=== PATIENT | female | born 1955 | race Caucasian/White ===

== ENCOUNTER → 2016-11-16 | Outpatient (CLI) | payer BC ==
[~2016-11-16] MED LIST: METOCLOPRAMIDE HCL 5MG/ml INJ 2ml VIAL IV ONE; METOCLOPRAMIDE HCL 5MG/ml INJ 2ml VIAL ONE; SODIUM CHLORIDE 0.9% 1,000 ML IV ONE
[2016-11-16 15:15] VITALS: BP 120/80
[2016-11-16 16:25] VITALS: BP 125/73
== END | disposition home or self-care (01) ==
LOC: Rad HDHVI 15:25
PROVIDERS: ATTEND Internal Medicine Cardiovascular Disease
DX: R10.9 Unspecified abdominal pain (principal); I10 Essential (primary) hypertension; E55.9 Vitamin D deficiency, unspecified; D64.9 Anemia, unspecified; E78.00 Pure hypercholesterolemia, unspecified; E11.9 Type 2 diabetes mellitus without complications
CPT/HCPCS: 74000; 96361; 96374; G0463; J2765; 96360

== ENCOUNTER → 2017-07-16 | Outpatient (CLI) | payer BC | END | disposition home or self-care (01) | LOC: CHF HDHVI 07:53 | PROVIDERS: ATTEND Internal Medicine Cardiovascular Disease | DX: R79.82 Elevated C-reactive protein (CRP) (principal); R70.0 Elevated erythrocyte sedimentation rate | CPT/HCPCS: 36415; 85652; 86141 ==

== ENCOUNTER → 2017-08-17 | Outpatient (CLI) | payer BC ==
[~2017-08-17] MED LIST changes: +ALBUTEROL SULF 2.5 MG/0.5ML(0.5%) NEB SOLN NEB ONE; +ALBUTEROL SULF 2.5 MG/0.5ML(0.5%) NEB SOLN ONE; +CYANOCOBALAMIN (B-12) 1000 MCG/1 ML VIAL IM ONE; +CYANOCOBALAMIN (B-12) 1000 MCG/1 ML VIAL ONE; -METOCLOPRAMIDE HCL 5MG/ml INJ 2ml VIAL IV ONE; -METOCLOPRAMIDE HCL 5MG/ml INJ 2ml VIAL ONE; -SODIUM CHLORIDE 0.9% 1,000 ML IV ONE
[2017-08-17 10:45] VITALS: BP 141/69
[2017-08-17 10:46] VITALS: BP 155/87
[2017-08-17 12:10] LABS: Basophils # (auto) 0.1 uL; Basophils % (auto) 0.6 % (0.0-2.0); Eosinophils # (auto) 0.2 uL; Eosinophils % (auto) 1.6 % (0.0-7.0); Lymphocytes # (auto) 1.9 uL; Monocytes # (auto) 0.7 uL; Neutrophils # (auto) 6.9 uL; Neutrophils % (auto) 70.9 % (37.0-80.0); White Blood Cell 9.7 10^3/uL (4.4-10.8)
[2017-08-17 12:12] LABS: Hematocrit 38.9 % (36.0-46.0); Hemoglobin 12.7 g/dL (12.2-16.2); Lymphocytes % (auto) 19.6 % (10.0-50.0); Mean Corpuscular Hemoglobin 26.1 pg (28.0-32.0); Mean Corpuscular Hgb Conc. 32.7 g/dL (32.0-36.0); Mean Corpuscular Volume 79.6 fL (80.0-100.0); Monocytes % (auto) 7.3 % (0.0-12.0); Platelet Count (auto) 373 10^3/uL (140-450); Red Blood Cells 4.88 10^6/uL (4.0-5.20); Red Cell Distribution Width 15.3 % (11.8-14.3)
[2017-08-17 12:24] LABS: BUN/Creatinine Ratio 22.2; Calcium 8.8 mg/dL (8.5-10.1); Magnesium 2.5 mg/dL (1.6-2.6); Potassium 4.5 mmol/L (3.5-5.1)
== END | disposition home or self-care (01) ==
LOC: CHF HDHVI 09:59
PROVIDERS: ATTEND Internal Medicine Cardiovascular Disease
DX: I10 Essential (primary) hypertension (principal); E83.42 Hypomagnesemia; D64.9 Anemia, unspecified
CPT/HCPCS: 36415; 80048; 83735; 85025; 94640; 96372; G0463; J3420

== ENCOUNTER → 2018-04-21 | Outpatient (CLI) | payer BC ==
[~2018-04-21] MED LIST changes: -CYANOCOBALAMIN (B-12) 1000 MCG/1 ML VIAL IM ONE; -CYANOCOBALAMIN (B-12) 1000 MCG/1 ML VIAL ONE
[2018-04-21 16:00] VITALS: BP 168/65
[2018-04-21 16:20] VITALS: BP 147/60
== END | disposition home or self-care (01) ==
LOC: CHF HDHVI 16:03
PROVIDERS: ATTEND Internal Medicine Cardiovascular Disease
DX: J45.909 Unspecified asthma, uncomplicated (principal); J06.9 Acute upper respiratory infection, unspecified
CPT/HCPCS: 94640; G0463; J7611

== ENCOUNTER → 2019-02-10 | Outpatient (CLI) | payer BC | END | disposition home or self-care (01) | LOC: Rad HDHVI 08:32 | PROVIDERS: ATTEND Internal Medicine | DX: M43.17 Spondylolisthesis, lumbosacral region (principal); M47.816 Spondylosis without myelopathy or radiculopathy, lumbar region; M16.0 Bilateral primary osteoarthritis of hip | CPT/HCPCS: 72100 ==

== ENCOUNTER → 2019-03-08 | Outpatient (CLI) | payer BC ==
[~2019-03-08] MED LIST changes: -ALBUTEROL SULF 2.5 MG/0.5ML(0.5%) NEB SOLN NEB ONE; -ALBUTEROL SULF 2.5 MG/0.5ML(0.5%) NEB SOLN ONE; +IOHEXOL 350 MG/ML 100ML IJ ONE
[2019-03-08 08:30] VITALS: BP 157/75
--- NOTE | 2019-03-08 08:30 | NUR ---
PT. TO CLINIC FOR CT ABD . AND PELVIS. HX OF MULTIPLE EPISODES OF SBO PER PT. WITH CHRONIC ABD PAIN.
--- NOTE | 2019-03-08 08:40 | NUR ---
IV insertion IV access obtained, via clean sterile technique by inserting 20 gauge catheter at after attempt(s). IV secured properly. No trauma to site. Patient tolerated procedure well. FULL FASTING LABS SENT PER MD ORDER.
[2019-03-08 09:42] LABS: Albumin 4.2 g/dL (3.4-5.0); BUN/Creatinine Ratio 23.3; Calcium 8.9 mg/dL (8.5-10.1); Potassium 4.2 mmol/L (3.5-5.1)
[2019-03-08 09:45] LABS: Bilirubin, Total 0.4 mg/dL (0.2-1.0)
--- NOTE | 2019-03-08 10:05 | NUR ---
IV removal IV DC'd with sterile technique, catheter fully intact. Pressure dressing applied to site. Patient tolerated procedure well. Discharged with aftercare instructions per MD. NOTE:
[2019-03-08 10:07] VITALS: BP 133/73
--- NOTE | 2019-03-08 10:07 | NUR ---
Discharge Instructions See e-MAR for any mediations given with this visit. Patient education given on disease process. Patient verbalized understanding. Previous labs reviewed. Patient discharged in stable condition with after care instructions and follow up appointment.
[2019-03-08 11:53] LABS: Urine Blood Negative /uL (Negative); Urine Specific Gravity 1.006 (1.001-1.035)
[2019-03-08 11:57] LABS: Basophils # (auto) 0.1 uL; Eosinophils # (auto) 0.1 uL; Monocytes # (auto) 0.7 uL; Monocytes % (auto) 8.9 % (0.0-12.0); Red Blood Cells 4.96 10^6/uL (4.0-5.20); Red Cell Distribution Width 16.3 % (11.8-14.3)
[2019-03-08 12:01] LABS: Basophils % (auto) 0.7 % (0.0-2.0); Eosinophils % (auto) 1.4 % (0.0-7.0); Hematocrit 40.2 % (36.0-46.0); Lymphocytes # (auto) 1.2 uL; Lymphocytes % (auto) 14.4 % (10.0-50.0); Mean Corpuscular Hemoglobin 26.2 pg (28.0-32.0); Mean Corpuscular Hgb Conc. 32.3 g/dL (32.0-36.0); Mean Corpuscular Volume 81.1 fL (80.0-100.0); Neutrophils % (auto) 74.6 % (37.0-80.0); Platelet Count (auto) 324 10^3/uL (140-450)
[2019-03-08 12:39] LABS: Cholesterol 185 mg/dL (< 200)
[2019-03-08 12:43] LABS: HDL Cholesterol 49 mg/dL (40-59); LDL Cholesterol 114 mg/dL (< 100); Triglycerides 99 mg/dL (< 150)
== END | disposition home or self-care (01) ==
LOC: Rad HDHVI 08:25
PROVIDERS: ATTEND Internal Medicine
DX: K44.9 Diaphragmatic hernia without obstruction or gangrene (principal); M47.816 Spondylosis without myelopathy or radiculopathy, lumbar region; K90.9 Intestinal malabsorption, unspecified; N39.0 Urinary tract infection, site not specified; Z79.899 Other long term (current) drug therapy
CPT/HCPCS: 36415; 72131; 74178; 80053; 80061; 81003; 82306; 83036; 84443; 85025; G0463; Q9967

== ENCOUNTER → 2019-04-20 | Outpatient (CLI) | payer BC ==
[~2019-04-20] VITALS: Ht 162.6 cm; Wt 88.5 kg
[~2019-04-20] MED LIST changes: +ADENOSINE 74 MG in GIVE UN-DILUTED 0 ML IV ONE; +ADENOSINE 90 MG/30 ML INJ IV ONE; -IOHEXOL 350 MG/ML 100ML IJ ONE
== END | disposition home or self-care (01) ==
LOC: Rad HDHVI 13:52
PROVIDERS: ATTEND Internal Medicine Cardiovascular Disease
DX: J44.9 Chronic obstructive pulmonary disease, unspecified (principal); I20.0 Unstable angina; I10 Essential (primary) hypertension
CPT/HCPCS: 78452; 93005; 93306; 96374; 96375; A9500; J0153

== ENCOUNTER → 2022-06-09 | Outpatient (CLI) | payer OTHER | END | disposition home or self-care (01) | LOC: Rad HDHVI 14:02 | PROVIDERS: ATTEND Internal Medicine Cardiovascular Disease | DX: I07.1 Rheumatic tricuspid insufficiency (principal); R07.9 Chest pain, unspecified; E78.5 Hyperlipidemia, unspecified | CPT/HCPCS: 93306 ==

== ENCOUNTER → 2022-06-10 | Outpatient (CLI) | payer OTHER | END | disposition home or self-care (01) | LOC: Rad HDHVI 15:00 | PROVIDERS: ATTEND Internal Medicine Cardiovascular Disease | DX: I10 Essential (primary) hypertension (principal); E78.5 Hyperlipidemia, unspecified | CPT/HCPCS: 93880 ==

== ENCOUNTER → 2022-06-24 | Outpatient (CLI) | payer OTHER ==
[~2022-06-24] VITALS: Ht 162.6 cm; Wt 87.5 kg
== END | disposition home or self-care (01) ==
LOC: Rad HDHVI 08:04
PROVIDERS: ATTEND Internal Medicine Cardiovascular Disease
DX: Z01.810 Encounter for preprocedural cardiovascular examination (principal); I11.0 Hypertensive heart disease with heart failure; I50.33 Acute on chronic diastolic (congestive) heart failure; J44.9 Chronic obstructive pulmonary disease, unspecified; E78.5 Hyperlipidemia, unspecified; Z82.49 Family history of ischemic heart disease and other diseases of the circulatory system
CPT/HCPCS: 78452; 93005; 96374; 96375; A9500; J0153

== ENCOUNTER → 2022-08-21 | Outpatient (CLI) | payer OTHER | END | disposition home or self-care (01) | LOC: LAB 08:27 | PROVIDERS: ATTEND Internal Medicine Cardiovascular Disease | DX: R94.4 Abnormal results of kidney function studies (principal) | CPT/HCPCS: 36415; 82565; 84520 ==

== ENCOUNTER → 2022-08-24 | Outpatient (CLI) | payer OTHER ==
[~2022-08-24] MED LIST changes: -ADENOSINE 74 MG in GIVE UN-DILUTED 0 ML IV ONE; -ADENOSINE 90 MG/30 ML INJ IV ONE; +IOHEXOL 350 MG/ML 100ML IJ ONE
[2022-08-24 15:52] VITALS: BP 163/68
[2022-08-24 16:12] VITALS: BP 165/56
== END | disposition home or self-care (01) ==
LOC: Rad HDHVI 15:39
PROVIDERS: ATTEND Internal Medicine Cardiovascular Disease
DX: I70.0 Atherosclerosis of aorta (principal); R06.02 Shortness of breath; J45.909 Unspecified asthma, uncomplicated
CPT/HCPCS: 71260; G0463; Q9967

== ENCOUNTER → 2022-10-16 | Outpatient (CLI) | payer OTHER | END | disposition home or self-care (01) | LOC: Rad HDHVI 11:37 | PROVIDERS: ATTEND Internal Medicine Cardiovascular Disease | DX: Z01.818 Encounter for other preprocedural examination (principal); I70.0 Atherosclerosis of aorta; M47.814 Spondylosis without myelopathy or radiculopathy, thoracic region; M48.04 Spinal stenosis, thoracic region; M46.04 Spinal enthesopathy, thoracic region | CPT/HCPCS: 71046 ==

== ENCOUNTER → 2023-11-17 | Outpatient (CLI) | payer OTHER | END | disposition home or self-care (01) | LOC: Rad HDHVI 15:02 | PROVIDERS: ATTEND Internal Medicine Cardiovascular Disease | DX: R60.9 Edema, unspecified (principal); E78.5 Hyperlipidemia, unspecified | CPT/HCPCS: 93970 ==

== ENCOUNTER → 2024-03-20 | Outpatient (CLI) | payer OTHER | END | disposition home or self-care (01) | LOC: Rad HDHVI 12:08 | PROVIDERS: ATTEND Internal Medicine Cardiovascular Disease | DX: R06.02 Shortness of breath (principal) | CPT/HCPCS: 71046 ==

== ENCOUNTER → 2024-07-28 | Outpatient (CLI) | payer OTHER ==
--- NOTE | 2024-07-28 11:47 | DVH ---
XY CHEST TWO VIEWS ROUTINE CLINICAL HISTORY: SOB COMPARISON: XY CHEST TWO VIEWS ROUTINE on DOS: 03/20/24, XY CHEST TWO VIEWS ROUTINE on DOS: 10/16/22 TECHNIQUE: Frontal and lateral view of the chest was obtained FINDINGS: Lines and Tubes: None Lungs: No focal consolidation. Pleura: No effusion. No pneumothorax. Cardiomediastinal contours: Unremarkable Bones: No acute osseous abnormality. IMPRESSION: 1. No radiographic evidence of acute cardiopulmonary disease. HS:Y
== END | disposition home or self-care (01) ==
LOC: Rad HDHVI 11:30
PROVIDERS: ATTEND Internal Medicine Cardiovascular Disease
DX: R06.02 Shortness of breath (principal)
CPT/HCPCS: 71046

== ENCOUNTER → 2024-08-22 | Outpatient (CLI) | payer OTHER | END | disposition home or self-care (01) | LOC: Rad HDHVI 15:53 | PROVIDERS: ATTEND Internal Medicine Cardiovascular Disease | DX: I10 Essential (primary) hypertension (principal) | CPT/HCPCS: 93306 ==

== ENCOUNTER → 2024-08-23 | Outpatient (CLI) | payer OTHER | END | disposition home or self-care (01) | LOC: Rad HDHVI 15:29 | PROVIDERS: ATTEND Internal Medicine Cardiovascular Disease | DX: I10 Essential (primary) hypertension (principal); I70.0 Atherosclerosis of aorta | CPT/HCPCS: 93880 ==

== ENCOUNTER 2025-01-15 11:53 | Outpatient (CLI) | payer OTHER ==
[2025-01-15 12:11] VITALS: BP 145/59; PULSE 74; RESP 20; O2SAT 98
[2025-01-15 12:48] VITALS: BP 148/53; PULSE 72; RESP 20; O2SAT 98
--- NOTE | 2025-01-15 14:34 | DVH ---
Procedure: CT CHEST WITH CONTRAST 01/15/2025 12:18 PM History: ASTHMA / SOB Comparison: CHEST WITH CONTRAST on DOS: 08/24/22 Technique: After the uneventful administration of contrast intravenously, CT imaging was performed th rough the chest. Coronal and sagittal reformations were performed by the technologist. 3D image postprocessing was performed on a dedicated workstation and images were used for interpretat ion and reporting. Radiation Dose : CT Dose: CTDI volume is 11.19 mGy. Dose-length product is 425.07 mGy*cm Findings: Lower neck: Normal thyroid. Lungs: Very subtle patchy peripheral multifocal ground-glass airspace opacities. Heart/Vascular Structures: Normal heart size. No pericardial effusion. Lymph Nodes: No adenopathy Pleura: No pleural effusion or significant pneumothorax. Musculoskeletal: No acute osseous abnormality. Soft tissues: Normal. Upper abdomen: Limited portions of the upper abdomen are unremarkable. IMPRESSION: Subtle patchy peripheral multifocal ground-glass airspace opacities. Findings may represent atypical pneumonia. Clinical correlation advised.
[2025-01-15] MEDS ORDERED: IOHEXOL 350 MG/ML 100ML IJ ONE (15:31)
== END 2025-01-15 17:00 | disposition home or self-care (01) ==
LOC: Rad HDHVI 11:53
PROVIDERS: ATTEND Internal Medicine Cardiovascular Disease
DX: J45.909 Unspecified asthma, uncomplicated (principal); R06.02 Shortness of breath
CPT/HCPCS: 71260; G0463; Q9967

== ENCOUNTER 2025-04-20 14:36 | Outpatient (CLI) | payer MEDICARE, BC ==
--- NOTE | 2025-04-23 15:56 | DVHSR ---
APPROVED REPORT EXAM: LIMITED Two-dimensional and M-mode echocardiogram with Doppler and color Doppler. DIMENSIONS LVDd5.4 (3.8-5.7cm)LA (2D)3.9 (1.9-4.0cm)Aortic Root3.6 (2.0-3.7cm) LVDs3.1 (2.5-4.0cm)LA (MM) (1.9-4.0cm)Aortic Cusp Exc1.7 (1.5-2.0cm) EF (%) 70.0 (55-70%)Rt. Atrium3.9 (1.9-4.0cm)Asc. Aorta cm IVSd1.1 (0.7-1.1cm)RV (D) (1.8-2.4cm) PWd0.9 (0.7-1.1cm) Mitral Valve MitralMitral Stenosis E wave1.20m/sMV Mean GR.mmHg A wave1.20m/sMV Peak GR.mmHg E/A ratio1.02D MVAcm2 Aortic Valve Aortic ValveAortic Stenosis V11.50m/Diallo Mean GR.7mmHg V21.80m/Diallo Peak GR.14mmHg LVOT Diameter2.1 (1.8-2.4cm)Doppler AVA2.88cm2 LEFT VENTRICLE The left ventricle is normal size. The left ventricle is normal in structure and function. The Ejection Fraction is within normal limits. RIGHT VENTRICLE The right ventricle is normal size. ATRIA The left atrial size is normal. The right atrium size is normal. The interatrial septum is intact with no evidence for an atrial septal defect. MITRAL VALVE The mitral valve is normal in structure and function. Mitral regurgitation is trace to mild. PULMONIC VALVE The pulmonic valve is not well visualized. TRICUSPID VALVE The tricuspid valve is grossly normal. AORTIC VALVE The aortic valve opens well. No aortic regurgitation is present. GREAT VESSELS The aortic root is normal size. PERICARDIAL EFFUSION There is no pericardial effusion. Conclusion EF >55%
== END 2025-04-20 15:00 | disposition home or self-care (01) ==
LOC: Rad HDHVI 14:36
PROVIDERS: ATTEND Internal Medicine Cardiovascular Disease
DX: I34.0 Nonrheumatic mitral (valve) insufficiency (principal); R00.2 Palpitations; R06.02 Shortness of breath
CPT/HCPCS: 93306

== ENCOUNTER 2025-04-23 11:52 | Outpatient (CLI) | payer MEDICARE, BC ==
[2025-04-23 12:00] VITALS: BP 170/71; PULSE 66; RESP 20; O2SAT 94
[2025-04-23 12:17] VITALS: BP 164/70; PULSE 66; RESP 20; O2SAT 95
[2025-04-23] MEDS ORDERED: RIV20T PO (17:20)
[2025-04-23] MEDS ORDERED: FAMO40TA7 PO (17:20)
[2025-04-23] MEDS ORDERED: AMIO200T33 PO (17:20)
[2025-04-23] MEDS ORDERED: BUPR-581 PO (17:20)
[2025-04-23] MEDS ORDERED: ALBU1AER4 IN (17:20)
[2025-04-23] MEDS ORDERED: ESTR0.5T6 PO (17:20)
[2025-04-23] MEDS ORDERED: FEXO-131 PO (17:20)
[2025-04-23] MEDS ORDERED: ACET-1304 PO (17:20)
[2025-04-23] MEDS ORDERED: PANT40TA2 PO (17:20)
[2025-04-23] MEDS ORDERED: FORM20NE3 IN (17:20)
[2025-04-23] MEDS ORDERED: LISI20TA56 PO (17:20)
[2025-04-23] MEDS ORDERED: CELE200C PO (17:20)
[2025-04-23] MEDS ORDERED: [UNRECOGNIZED DRUG - CODE] PO (17:20)
[2025-04-23] MEDS ORDERED: ONDA-155 PO (17:20)
[2025-04-23] MEDS ORDERED: MAGN400T40 PO (17:20)
[2025-04-23] MEDS ORDERED: FLUT1AER3 IN (17:20)
[2025-04-23] MEDS ORDERED: LINA1CAP2 PO (17:20)
[2025-04-23] MEDS ORDERED: MONT-8 PO (17:20)
== END 2025-04-23 17:00 | disposition home or self-care (01) ==
LOC: CHF HDHVI 11:52
PROVIDERS: ATTEND Internal Medicine Cardiovascular Disease
DX: Z01.818 Encounter for other preprocedural examination (principal); I25.10 Atherosclerotic heart disease of native coronary artery without angina pectoris; I49.1 Atrial premature depolarization
CPT/HCPCS: 36415; 80048; 85025; 85610; 85730; 93005; G0463

== ENCOUNTER 2025-04-26 07:30 | Day surgery (SDC) | payer MEDICARE, BC ==
[2025-04-23 15:04] LABS: Hematocrit 38.3 % (36.0-46.0); Hemoglobin 13.0 g/dL (12.2-16.2); Mean Corpuscular Hemoglobin 27.2 pg (28.0-32.0); Mean Corpuscular Volume 80.4 fL (80.0-100.0); Nucleated Red Blood Cells % 0.0 %
[2025-04-23 15:16] LABS: INR 1.2 (0.9-1.15); Partial Thromboplastin Time 33.3 SEC (24.5-34.5); Prothrombin Time 12.5 sec (9.3-11.8)
[2025-04-23 15:31] LABS: Chloride 104 mmol/L (98-107); Potassium 4.5 mmol/L (3.5-5.1); Sodium 140 mmol/L (136-145)
[2025-04-23 15:32] LABS: Anion Gap 10 (5-15); Carbon Dioxide 26 mmol/L (20-31)
[2025-04-23 15:33] LABS: Calcium 9.3 mg/dL (8.7-10.4)
[2025-04-23 15:38] LABS: BUN/Creatinine Ratio 16.3 (10.0-20.0); Blood Urea Nitrogen 15 mg/dL (9-23); Glucose 95 mg/dL (74-106)
[~2025-04-26] VITALS: Ht 162.6 cm; Wt 90.7 kg
[2025-04-26] VITALS (7 sets, daily range): BP systolic 119–158; BP diastolic 60–94; PULSE 70–75; RESP 12–16; O2SAT 95–100
[~2025-04-26 07:30] MED LIST changes: +ACET-1304 PO; +ALBU1AER4 IN; +AMIO200T33 PO; +BUPR-581 PO; +CELE200C PO; +ESTR0.5T6 PO; +FAMO40TA7 PO; +FEXO-131 PO; +FLUT1AER3 IN; +FORM20NE3 IN; -IOHEXOL 350 MG/ML 100ML IJ ONE; +LINA1CAP2 PO; +LISI20TA56 PO; +MAGN400T40 PO; +MONT-8 PO; +ONDA-155 PO; +PANT40TA2 PO; +RIV20T PO; +[UNRECOGNIZED DRUG - CODE] PO
[2025-04-26] MEDS: LORazepam 2MG/ML-1ML VIAL ONE (09:12)
[2025-04-26] MEDS: LORazepam 2MG/ML-1ML VIAL IV ONE (09:37)
[2025-04-26] MEDS ORDERED: IOHEXOL 350 MG/ML 100ML IJ ONE ×2 (10:09→10:14)
[2025-04-26] MEDS ORDERED: ANGIOMAX 250 MG VIAL IV ONE (10:23)
[2025-04-26] MEDS ORDERED: ONDANSETRON HCL 4 MG/2 ML VIAL ONE (10:23)
[2025-04-26] MEDS ORDERED: fentaNYL CITRATE 100 MCG/2 ML VL ONE (10:24)
[2025-04-26] MEDS ORDERED: MIDAZOLAM HCL 2MG/2ML 2ml VIAL (1mg/ml) ONE (10:24)
[2025-04-26] MEDS ORDERED: LIDOCAINE 2%HCL (LOCAL ANESTH.) INJ 20ML MDV ONE (10:24)
[2025-04-26] MEDS ORDERED: SODIUM CHL 0.9% 0 ML ONE (10:24)
[2025-04-26] MEDS ORDERED: FLUMAZENIL 0.1 MG/ML INJ 10ML MDV IV ONE (10:53)
--- NOTE | 2025-04-26 11:39 | DVHDS ---
DATE OF DISCHARGE: 04/26/2025 DISCHARGE DIAGNOSES: * Accelerated hypertension. * Hypertensive heart disease. HOSPITAL COURSE: Coronary angiography shows no significant epicardial disease. EF is preserved with 60% hyperdynamic contractility, but LVEDP was normal at 11 mmHg even though systolic pressure was elevated. At this time, continue all current medications. No changes are required. Aggressive antihypertensive therapy, risk modification, weight loss should be encouraged. We will continue to follow the patient. Rigoberto Sepulveda MD SA/ARTIS TID: [id number] RECEIPT: [id number]
--- NOTE | 2025-04-26 11:52 | DVHOP ---
DATE OF SURGERY: 04/26/2025 PROCEDURES TO BE PERFORMED: * Selective left and right coronary angiography. * Ventriculogram. * Right iliac angiography. * Conscious sedation. DESCRIPTION OF PROCEDURE: The patient was prepped and draped under sterile conditions. Xylocaine 1% used to anesthetize the right groin. Using Cook needle, right femoral artery was engaged. Using Seldinger technique, a 6-Russian sheath in the right femoral artery. Using a 6-Russian JL4 catheter, 6-Russian JR4 catheter, selective left and right coronary angiography was performed. Using 6-Russian pigtail catheter, ventriculogram was done. Total contrast used was 40 mL Optiray. Total fluoro time was 1.8 minutes. RESULTS: * Left main without any flow-restrictive lesion. * Left anterior descending artery without any flow-restrictive lesion. * Circumflex large dominant vessel without any flow-restrictive lesion. * Right coronary artery small nondominant vessel less than 2 mm in size without any flow-restrictive lesion. * Left ventricular function was preserved with an estimated EF greater than 60% with an LVEDP of 11 mmHg with no gradient across the aortic valve. Thus, the patient at this time needs aggressive risk modification but no catheter-based surgical intervention is warranted at this time. Rigoberto Sepulveda MD SA/ABRAHAN TID: [id number] RECEIPT: [id number]
--- NOTE | 2025-04-26 12:13 | DVHHP ---
ADMIT DATE: 04/26/2025 HISTORY OF PRESENT ILLNESS: The patient is a 69-year-old with a history of reactive airway disease, now having increasing symptoms of chest pain and shortness of breath. The patient had multiple office visits for chest pain. Stress test was negative. Echocardiogram shows preserved left ventricular ejection fraction. Despite the fact that the patient had all these negative tests, she is continuing to experience chest discomfort, so much so she is thinking of multiple times she has contemplated going into the Emergency Room, but rather she has come to my office on an emergent basis. EKG does not show any acute changes. She is a very type A personality, high stress, but I believe that is what is causing the symptoms. She also has COPD, reactive airway disease and that is also causing some of the symptoms of chest pain and the shortness of breath. REVIEW OF SYSTEMS: She denies any history of CVA. No history of seizure disorder. No history of movement disorders. No visual disturbances. No hearing deficit. No history of GI symptomatology such as dysphagia, diarrhea, constipation, irritable bowel syndrome or inflammatory bowel disease. She denies any liver disease. Denies any GI symptoms other than occasional epigastric discomfort. She has no bleeding diathesis. No history of diarrhea, hematochezia, hemoptysis, hematemesis or hematuria. No melena as well. She does have asthma, reactive airway disease for which she is on inhaler. She has hypertension. She is obese. She has metabolic syndrome. PHYSICAL EXAMINATION: VITAL SIGNS: Blood pressure is elevated at 148/70, pulse 70, O2 saturation 98% on room air. HEENT: Pupils are reactive. Funduscopic exam shows no AV nicking. No exudates, no papilledema. Sclerae anicteric. Extraocular muscles are intact. Tympanic membranes are negative. Oral mucosa moist. Posterior pharynx without any exudates. NECK: Supple. No nuchal rigidity appreciated. No cervical adenopathy. No supraclavicular adenopathy. She does not have any axillary adenopathy as well. Carotid pulses are 2+ symmetrical. Normal upstroke and contour. No JVD appreciated. Thyroid is within normal limits. No bruits appreciated. No axillary adenopathy. PULMONARY: Scattered rhonchi with scattered expiratory wheezes. Tympanic to percussion. No egophony. CARDIOVASCULAR: Regular rate without S3, without S4. PMI is not displaced. ABDOMEN: Obese. Unable to appreciated organomegaly. Liver approximately 5 cm by percussion. Mild epigastric tenderness. Stool guaiac is negative. No suprapubic tenderness. No CVA tenderness. NEUROLOGIC: The patient is intact. DTRs are 2+ symmetrical. Cranial nerves 2 through 12 within normal limits. Sensory and motor modalities are intact. Negative for ataxia. Negative for Babinski. Negative for pronator drift. EXTREMITIES: 1+ edema and 1+ pulses bilaterally. Even before the procedure, she needed a lot of sedation. Ativan 1 mg was given IV to sedate the patient. IMPRESSION: Thus, the patient with ongoing chest pain, even though stress test is negative. Echocardiogram was negative. It is felt because of recurrent chest pain, pressure-like sensation, classic manifestation of angina, she should undergo coronary angiography. RECOMMENDATIONS: Further recommendations after the angiography. Rigoberto Sepulveda MD SA/RAUL/KENAN TID: [id number] RECEIPT: [id number]
== END 2025-04-26 13:30 | disposition home or self-care (01) ==
LOC: CATH 07:30
PROVIDERS: ATTEND Internal Medicine Cardiovascular Disease
DX: R07.89 Other chest pain (principal); R06.02 Shortness of breath; R94.39 Abnormal result of other cardiovascular function study; J44.9 Chronic obstructive pulmonary disease, unspecified; Z79.899 Other long term (current) drug therapy; Z88.0 Allergy status to penicillin; Z88.1 Allergy status to other antibiotic agents; Z88.2 Allergy status to sulfonamides; Z88.6 Allergy status to analgesic agent
CPT/HCPCS: 93458; C1760; C1894; J1644; J2060; J2250; J2405; J3010; Q9967; 36415; 80048; 85025; 85610; 85730; 99152

== ENCOUNTER 2025-05-23 06:13 | Outpatient (CLI) | payer MEDICARE, BC ==
[2025-05-24 08:07] LABS: Immunoglobulin A 190 mg/dL (87-352); Immunoglobulin G, Serum 912 mg/dL (586-1602); Immunoglobulin M 163 mg/dL (26-217)
== END 2025-05-23 17:00 | disposition home or self-care (01) ==
LOC: LAB 06:13
PROVIDERS: ATTEND Internal Medicine Cardiovascular Disease
DX: R74.8 Abnormal levels of other serum enzymes (principal)
CPT/HCPCS: 82784